=== PATIENT | male | born 1990 | race African-American/Black ===

== ENCOUNTER 2020-07-05 14:22 | Emergency (ER) | payer MEDICAID ==
[~2020-07-05] VITALS: Ht 177.8 cm; Wt 91.0 kg
[2020-07-05] MEDS ORDERED: IBUPROFEN 600MG TABLET PO STA (14:34)
[2020-07-05 15:29] VITALS: BP 142/119
== END 2020-07-05 16:19 | disposition home or self-care (01) ==
LOC: ER 14:22
DX: S50.812A Abrasion of left forearm, initial encounter (principal); M79.641 Pain in right hand; Y07.432 Male friend of parent (co-residing in household), perpetrator of maltreatment and neglect; Y04.0XXA Assault by unarmed brawl or fight, initial encounter; Y93.89 Activity, other specified; Y92.89 Other specified places as the place of occurrence of the external cause; Z89.022 Acquired absence of left finger(s)
CPT/HCPCS: 73090; 73130; 99284

== ENCOUNTER 2021-11-06 21:33 | Emergency (ER) | payer MEDICAID, OTHER ==
[2021-11-07] MEDS ORDERED: MED4 MT (05:55)
== END 2021-11-06 23:17 | disposition left against medical advice (07) ==
LOC: ER 21:33
DX: Z53.21 Procedure and treatment not carried out due to patient leaving prior to being seen by health care provider (principal)

== ENCOUNTER 2021-11-06 23:40 | Emergency (ER) | payer OTHER ==
[~2021-11-06] VITALS: Ht 177.8 cm; Wt 106.0 kg
[2021-11-06 23:55] VITALS: BP 151/102
[2021-11-07 04:21] LABS: BASOPHILS % 0.7 % (0.0-2.0); EOSINOPHILS % 3.1 % (0.0-5.0); HEMATOCRIT. 43.7 % (42.0-52.0); HEMOGLOBIN. 13.6 g/dL (14.0-18.0); LYMPHOCYTES % 42.4 % (20.0-50.0); MEAN CORPUSCULAR HEMOGLOBIN 27.9 pg (28.0-32.0); MEAN CORPUSCULAR VOLUME 89.2 fL (80.0-94.0); MEAN PLATELET VOLUME 8.4 fl (7.4-10.4); NEUTROPHILS % 46.8 % (40.0-76.0); PLATELET 222 x1000/uL (130-400); RED CELL DISTRIBUTION WIDTH 13.2 % (11.6-14.6)
[2021-11-07 04:37] LABS: CHLORIDE 109 mEq/L (98-107)
[2021-11-07] MEDS ORDERED: MED4 MT (05:55)
== END 2021-11-07 06:04 | disposition home or self-care (01) ==
LOC: ER 23:40
DX: R07.89 Other chest pain (principal); I10 Essential (primary) hypertension
CPT/HCPCS: 71045; 93005; 99285

== ENCOUNTER 2021-11-23 07:21 | Emergency (ER) | payer OTHER ==
[~2021-11-23] VITALS: Ht 182.9 cm; Wt 111.0 kg
[~2021-11-23 07:21] MED LIST: MED4 MT
[2021-11-23] MEDS ORDERED: LORAZEPAM 2MG/ML CPJ IM STA (07:47)
[2021-11-23] MEDS ORDERED: OLANZAPINE 10 MG/VIAL IM ONE (08:00)
[2021-11-23] MEDS ORDERED: DIPHENHYDRAMINE 50MG/ML VIAL IM ONE (08:00)
[2021-11-23 09:07] LABS: BASOPHILS % 0.5 % (0.0-2.0); EOSINOPHILS % 0.4 % (0.0-5.0); HEMOGLOBIN. 13.9 g/dL (14.0-18.0); LYMPHOCYTES % 24.3 % (20.0-50.0); MEAN CORPUSCULAR HEMOGLOBIN 28.1 pg (28.0-32.0); MEAN CORPUSCULAR VOLUME 88.7 fL (80.0-94.0); MEAN PLATELET VOLUME 8.3 fl (7.4-10.4); MONOCYTES % 5.4 % (2.0-8.0); NEUTROPHILS % 69.4 % (40.0-76.0); PLATELET 255 x1000/uL (130-400); RED BLOOD CELL COUNT 4.96 mill/uL (4.7-6.1); RED CELL DISTRIBUTION WIDTH 13.3 % (11.6-14.6)
[2021-11-23 09:12] LABS: CHLORIDE 107 mEq/L (98-107)
[2021-11-23 09:16] LABS: ETHANOL BLOOD < 10 mg/dL
[2021-11-23] MEDS ORDERED: LIDOCAINE HCL/PF 1% 10 MG/ML 5ML VIAL INFIL ONE (15:45)
[2021-11-23] MEDS ORDERED: LIDOCAINE HCL 1% 20ML VIAL (Pyxis) INJ INFIL NR (16:00)
[2021-11-23] MEDS: OLANZAPINE 5MG TABLET PO SCH (22:00)
[2021-11-24] MEDS: OLANZAPINE 5MG TABLET PO SCH (09:00)
[2021-11-24 13:15] LABS: CLARITY URINE CLEAR (CLEAR); COLOR URINE YELLOW (YELLOW); KETONES URINE TRACE (NEGATIVE); LEUKOCYTE ESTERASE URINE NEGATIVE (NEGATIVE); NITRITE URINE NEGATIVE (NEGATIVE); OCCULT BLOOD URINE NEGATIVE (NEGATIVE); PROTEIN URINE 1+ (NEGATIVE); SPECIFIC GRAVITY URINE 1.028 (1.005-1.030)
[2021-11-24 14:10] LABS: *BENZODIAZEPINES SCREEN URINE NEGATIVE (NEGATIVE); *COCAINE SCREEN URINE NEGATIVE (NEGATIVE); METHADONE URINE SCREEN NEGATIVE (NEGATIVE); OPIATES URINE SCREEN NEGATIVE (NEGATIVE)
[2021-11-24 14:11] LABS: *AMPHETAMINES SCREEN URINE PRESUMTIVE POSITIVE (NEGATIVE); *BARBITURATES SCREEN URINE NEGATIVE (NEGATIVE); CANNABINOID URINE SCREEN PRESUMTIVE POSITIVE (NEGATIVE); PHENCYCLIDINE URINE SCREEN NEGATIVE (NEGATIVE)
[2021-11-24 18:00] VITALS: BP 128/87
== END 2021-11-24 19:00 ==
LOC: ER 07:39
DX: S11.81XA Laceration without foreign body of other specified part of neck, initial encounter (principal); F31.2 Bipolar disorder, current episode manic severe with psychotic features; S61.511A Laceration without foreign body of right wrist, initial encounter; S51.811A Laceration without foreign body of right forearm, initial encounter; X78.8XXA Intentional self-harm by other sharp object, initial encounter; F15.10 Other stimulant abuse, uncomplicated; F16.10 Hallucinogen abuse, uncomplicated; F12.10 Cannabis abuse, uncomplicated; R45.1 Restlessness and agitation; Z20.822 Contact with and (suspected) exposure to COVID-19; Y93.89 Activity, other specified; Y92.012 Bathroom of single-family (private) house as the place of occurrence of the external cause
CPT/HCPCS: 36415; 80053; 80305; 80320; 81003; 85025; 87426; 87635; 96372; 99291; J1200; J2060; J3490; G0480

== ENCOUNTER 2021-12-03 09:45 | Emergency (ER) | payer OTHER ==
[~2021-12-03] VITALS: Ht 188 cm; Wt 137.0 kg
[2021-12-03] MEDS ORDERED: SODIUM CHLORIDE 0.9% 1,000 ML IV ONE (10:15)
[2021-12-03 10:31] LABS: BASOPHILS % 0.3 % (0.0-2.0); EOSINOPHILS % 1.5 % (0.0-5.0); HEMATOCRIT. 45.9 % (42.0-52.0); LYMPHOCYTES % 28.5 % (20.0-50.0); MEAN CORPUSCULAR HEMOGLOBIN 28.4 pg (28.0-32.0); MEAN CORPUSCULAR VOLUME 86.8 fL (80.0-94.0); MEAN PLATELET VOLUME 9.1 fl (7.4-10.4); MONOCYTES % 6.6 % (2.0-8.0); NEUTROPHILS % 63.1 % (40.0-76.0); PLATELET 234 x1000/uL (130-400); RED BLOOD CELL COUNT 5.28 mill/uL (4.7-6.1); RED CELL DISTRIBUTION WIDTH 12.8 % (11.6-14.6)
[2021-12-03 10:37] LABS: CHLORIDE 105 mEq/L (98-107)
[2021-12-03 10:40] LABS: ETHANOL BLOOD < 10 mg/dL
[2021-12-03] MEDS ORDERED: HALOPERIDOL LACTATE 5MG/ML VIAL IM PRN (11:15)
[2021-12-03] MEDS ORDERED: LORAZEPAM 2MG/ML CPJ IV PRN (11:15)
[2021-12-03 11:47] LABS: CLARITY URINE CLEAR (CLEAR); COLOR URINE YELLOW (YELLOW); KETONES URINE NEGATIVE (NEGATIVE); LEUKOCYTE ESTERASE URINE NEGATIVE (NEGATIVE); NITRITE URINE NEGATIVE (NEGATIVE); OCCULT BLOOD URINE 2+ (NEGATIVE); PROTEIN URINE NEGATIVE (NEGATIVE); SPECIFIC GRAVITY URINE 1.006 (1.005-1.030); UROBILINOGEN URINE 0.2 E.U./dL (0.2-1.0)
[2021-12-03] MEDS ORDERED: POTASSIUM CHLORIDE 20MEQ TABLET SR PO ONE (12:45)
[2021-12-03 12:54] LABS: *AMPHETAMINES SCREEN URINE PRESUMTIVE POSITIVE (NEGATIVE); *COCAINE SCREEN URINE NEGATIVE (NEGATIVE); CANNABINOID URINE SCREEN NEGATIVE (NEGATIVE); METHADONE URINE SCREEN NEGATIVE (NEGATIVE); OPIATES URINE SCREEN NEGATIVE (NEGATIVE); PHENCYCLIDINE URINE SCREEN NEGATIVE (NEGATIVE)
[2021-12-03 12:55] LABS: *BARBITURATES SCREEN URINE NEGATIVE (NEGATIVE); *BENZODIAZEPINES SCREEN URINE NEGATIVE (NEGATIVE)
[2021-12-03] MEDS ORDERED: SODIUM BICARBONATE 8.4% 1 MEQ/ML 50ML SYR IV ONE (13:00)
[2021-12-03] MEDS ORDERED: POTASSIUM CHLORIDE 20MEQ TABLET SR PO NR (20:30)
[2021-12-03] MEDS: OLANZAPINE 5MG TABLET PO SCH (21:06)
[2021-12-04] MEDS: OLANZAPINE 5MG TABLET PO SCH ×2 (09:45→21:55)
[2021-12-04] MEDS ORDERED: PAROXETINE HCL 10MG TABLET PO SCH (10:00)
[2021-12-04 23:16] VITALS: BP 130/88
== END 2021-12-04 23:50 ==
LOC: ER 09:45
DX: T43.621A Poisoning by amphetamines, accidental (unintentional), initial encounter (principal); R45.851 Suicidal ideations; I10 Essential (primary) hypertension; F16.10 Hallucinogen abuse, uncomplicated; R31.29 Other microscopic hematuria; Z20.822 Contact with and (suspected) exposure to COVID-19; Z75.1 Person awaiting admission to adequate facility elsewhere; Z78.1 Physical restraint status; Y92.018 Other place in single-family (private) house as the place of occurrence of the external cause
CPT/HCPCS: 36415; 71045; 80053; 80305; 80307; 80320; 80329; 81003; 83735; 85025; 93005; 96361; 96372; 96374; 99291; C9803; J1630; J2060; J7030; U0003; U0005; Z7610; G0480